=== PATIENT | male | born 1940 | race Caucasian/White ===

== ENCOUNTER 2016-11-02 19:04 | Emergency (ER) | payer OTHER ==
--- NOTE | 2016-11-02 19:52 | DIAGNOSTIC IMAGING REPORT ---
PROCEDURE: XR CHEST 1 VIEW INDICATION: SHORTNESS OF BREATH TECHNIQUE: Single view chest. 1943 hours COMPARISON: None FINDINGS: Lordotic patient. Mild cardiomegaly. No central venous congestion. Minor strandy irregularity right middle lobe region, probably epicardial fat pad. Otherwise clear lungs. No effusions or pneumothorax. Degenerative changes in the right AC joint. IMPRESSION: 1. No acute process. 2. Strandy right middle lobe opacity probably fat pad, less likely atelectasis or infiltrate.
--- NOTE | 2016-11-02 21:24 | ED NURSING NOTES ---
Clinical Report - Nurses [facility] [address] [place] [address] 11/02/2016 19:05 Patient: HERIBERTO SANCHEZ TRIAGE Triage time 1905. Acuity: LEVEL 3. Chief Complaint: (Pt in by EMS after unable to get up by self today. (started to fall, family caught him efore he hit ground) pt fell 2 days ago and c/o back pain, with weakness and increased difficulty breathing). ( FSBS- 143). FRANCIS COMA SCORE: [place] Coma Scale: 15- eyes open spontaneously (4); best verbal response- oriented x 4 (5); best motor response- obeys commands (6). --19:28 Abimbola Priest R.N. 19:05 11/02/16. BP: 119/75. HR: 113. RR: 22. O2 saturation: 95% on room air. Temp: 100.2 F. Pain level now: 5/10. Additional comments: back pain (pt fell ). --19:28 Abimbola Priest R.N. Weight: 95.2 kg stated. Height/Length: 64 inches Per Patient. BMI: 36.1. --19:25 Abimbola Priest R.N. Medications Glimepiride Oral (Tablet 4 mg) 1 tablet, BID. Lovastatin Oral (Tablet 20 mg) 1 tablet, at bedtime. MetFORMIN HCl Oral (Tablet 1000 mg), 2x a day. --19:17 Abimbola Priest R.N. ASA Oral 81mg daily . --19:17 Abimbola Priest R.N. Gabapentin 300mg 2 tabs TID . --19:21 Abimbola Priest R.N. Ropinirole 0.5 2 tabs 1-3 hrs before bedtime . --19:21 Abimbola Priest R.N. Pioglitazone 15mg 1 daily . --19:23 Abimbola Priest R.N. Iron 27mg . --19:24 Abimbola Priest R.N. The following entry was struck and corrected by Abimbola Priest R.N., 19:25 (11/02/16) Reason for correction - other(correction). <<STRICKEN ENTRY-- MetFORMIN HCl Oral. --19:17 Abimbola Priest R.N. --END STRIKE>> The following entry was struck and corrected by Abimbola Priest R.N., 19:22 (11/02/16) Reason for correction - other(correction). <<STRICKEN ENTRY-- Glimepiride Oral. --19:17 Abimbola Priest R.N. --END STRIKE>> The following entry was struck and corrected by Abimbola Priest R.N., 19:20 (11/02/16) Reason for correction - other(correction). <<STRICKEN ENTRY-- Lovastatin Oral. --19:17 Abimbola Priest R.N. --END STRIKE>>. Allergies No Known Drug Allergy. --19:15 Abimbola Priest R.N. History Arrived by EMS. Historian: patient. Accompanied by family. Primary physician ([facility]). This started just prior to arrival. He has had fever, weakness, a cough and difficulty breathing. ( Pt has noisy respirations with frequent cough, has 2 + pedal edema). PAST MEDICAL HX: Diabetes mellitus. Hypertension. SOCIAL HX: Former smoker (quit 10 years ago, was a 2ppd smoker for 40). --19:28 Abimbola Priest R.N. Interventions ID band on patient. To treatment room. --19:28 Abimbola Priest R.N. PHYSICAL ASSESSMENT To room via stretcher. Patient gowned. GENERAL / NEURO / PSYCH: Alert. Oriented X 4. Appears in no acute distress. HEENT: Mucous membranes are pink. RESPIRATORY: The patient can speak in full sentences. Cough. CVS: Capillary refill less than 2 seconds. GI / : Abdomen soft. SKIN: Skin is warm and dry. --19:28 Abimbola Priest R.N. NURSING PROGRESS NOTES 19:05. Oxygen administered. Monitoring of patient in place. Patient gowned. Head of bed elevated. Reassurance given. Patient identifiers checked. Call light placed in reach. Side rails up. Bed placed in lowest position. Patient ready for evaluation- chart flagged. --19:19 Abimbola Priest R.N. 19:21. EKG time: (1920). EKG was ordered, performed by a tech and shown to the ED physician. done by Acosta maki. --19:37 Abimbola Priest R.N. 19:38 11/02/16. Portable chest x-ray ordered, performed and shown to the ED physician. --19:38 Abimbola Priest R.N. 19:50 11/02/2016 Site #1 started via IV in the right antecubital space with an 20g angiocath, with aseptic technique and good blood return; one attempt. Blood drawn: rainbow set and cultures x1. Labeled in the presence of the patient and sent to the lab. Saline lock flushed with 10 mL saline. --20:04 Abimbola Priest R.N. 19:50 IV started, blood to lab. family at bedside. --20:04 Abimbola Priest R.N. 19:50 11/02/16. BP: 143/60. HR: 108. RR: 21. O2 saturation: 97% on room air. Temp: deferred. Pain level now: 5/10. --20:08 Abimbola Priest R.N. 20:30 Pt c/o leg cramps , attempting to make pt more comfortable, moving pillows and adjusting back. --21:12 Abimbola Priest R.N. 21:05. ( pt getting agitated, asking when he can go home). --23:15 Abimbola Priest R.N. 21:15. ( pt stating that he is going to leave. asking for "any form I need so sign so I can get out of here"). --23:16 Abimbola Priest R.N. 21:20. ( daughter asking for information for home health care. given names of Eliot lora and Adina fung for follow up tomorrow). --23:16 Abimobla Priest R.N. 21:15 11/02/2016 Site #1 removed upon discharge. Pressure dressing applied. --23:17 Abimbola Priest R.N. 21:30 11/02/2016 IV Saline Lock Drip IV Discontinued: bag #1 STOPPED upon discharge. Total amount infused: 0 mL. IV patency established. IV site checked: no pain, redness, or swelling. IV flushed thoroughly. --23:18 Abimbola Priest R.N. DISPOSITION / DISCHARGE 21:30. Condition at departure: improved and stable. No learning barriers present. Discharge instructions provided and reviewed with the patient and family. Reviewed medication(s) (lasix). Reviewed referrals (adina travis and eliot lora names given to [facility] home health care). Patient and family verbalized understanding. Written instructions provided in Macedonian. The patient was discharged home and accompanied by family. He left the Emergency Department in a wheelchair and via private vehicle. --23:14 Abimbola Priest R.N. 21:30 11/02/16. BP: 152/68. HR: 110. RR: 22. O2 saturation: 97% on room air. Temp: deferred. Pain level now: 12/09. --23:14 Abimbola Priest R.N. Locked/Released at 11/02/2016 23:19 by Abimbola Priest R.N.
--- NOTE | 2016-11-02 21:24 | ED NURSING NOTES ---
Clinical Report - Nurses [facility] [address] [place] [address] 11/02/2016 19:05 Patient: HERIBERTO SANCHEZ TRIAGE Triage time 1905. Acuity: LEVEL 3. Chief Complaint: (Pt in by EMS after unable to get up by self today. (started to fall, family caught him efore he hit ground) pt fell 2 days ago and c/o back pain, with weakness and increased difficulty breathing). ( FSBS- 143). FRANCIS COMA SCORE: [place] Coma Scale: 15- eyes open spontaneously (4); best verbal response- oriented x 4 (5); best motor response- obeys commands (6). --19:28 Abimbola Priest R.N. 19:05 11/02/16. BP: 119/75. HR: 113. RR: 22. O2 saturation: 95% on room air. Temp: 100.2 F. Pain level now: 5/10. Additional comments: back pain (pt fell ). --19:28 Abimbola Priest R.N. Weight: 95.2 kg stated. Height/Length: 64 inches Per Patient. BMI: 36.1. --19:25 Abimbola Priest R.N. Medications Glimepiride Oral (Tablet 4 mg) 1 tablet, BID. Lovastatin Oral (Tablet 20 mg) 1 tablet, at bedtime. MetFORMIN HCl Oral (Tablet 1000 mg), 2x a day. --19:17 Abimbola Priest R.N. ASA Oral 81mg daily . --19:17 Abimbola Priest R.N. Gabapentin 300mg 2 tabs TID . --19:21 Abimbola Priest R.N. Ropinirole 0.5 2 tabs 1-3 hrs before bedtime . --19:21 Abimbola Priest R.N. Pioglitazone 15mg 1 daily . --19:23 Abimbola Priest R.N. Iron 27mg . --19:24 Abimbola Priest R.N. The following entry was struck and corrected by Abimbola Priest R.N., 19:25 (11/02/16) Reason for correction - other(correction). <<STRICKEN ENTRY-- MetFORMIN HCl Oral. --19:17 Abimbola Priest R.N. --END STRIKE>> The following entry was struck and corrected by Abimbola rPiest R.N., 19:22 (11/02/16) Reason for correction - other(correction). <<STRICKEN ENTRY-- Glimepiride Oral. --19:17 Abimbola Priest R.N. --END STRIKE>> The following entry was struck and corrected by Abimbola Priest R.N., 19:20 (11/02/16) Reason for correction - other(correction). <<STRICKEN ENTRY-- Lovastatin Oral. --19:17 Abimbola Priest R.N. --END STRIKE>>. Allergies No Known Drug Allergy. --19:15 Abimbola Priest R.N. History Arrived by EMS. Historian: patient. Accompanied by family. Primary physician ([facility]). This started just prior to arrival. He has had fever, weakness, a cough and difficulty breathing. ( Pt has noisy respirations with frequent cough, has 2 + pedal edema). PAST MEDICAL HX: Diabetes mellitus. Hypertension. SOCIAL HX: Former smoker (quit 10 years ago, was a 2ppd smoker for 40). --19:28 Abimbola Priest R.N. Interventions ID band on patient. To treatment room. --19:28 Abimbola Priest R.N. PHYSICAL ASSESSMENT To room via stretcher. Patient gowned. GENERAL / NEURO / PSYCH: Alert. Oriented X 4. Appears in no acute distress. HEENT: Mucous membranes are pink. RESPIRATORY: The patient can speak in full sentences. Cough. CVS: Capillary refill less than 2 seconds. GI / : Abdomen soft. SKIN: Skin is warm and dry. --19:28 Abimbola Priest R.N. NURSING PROGRESS NOTES 19:05. Oxygen administered. Monitoring of patient in place. Patient gowned. Head of bed elevated. Reassurance given. Patient identifiers checked. Call light placed in reach. Side rails up. Bed placed in lowest position. Patient ready for evaluation- chart flagged. --19:19 Abimbola Priest R.N. 19:21. EKG time: (1920). EKG was ordered, performed by a tech and shown to the ED physician. done by Acosta maki. --19:37 Abimbola Priest R.N. 19:38 11/02/16. Portable chest x-ray ordered, performed and shown to the ED physician. --19:38 Abimbola Priest R.N. 19:50 11/02/2016 Site #1 started via IV in the right antecubital space with an 20g angiocath, with aseptic technique and good blood return; one attempt. Blood drawn: rainbow set and cultures x1. Labeled in the presence of the patient and sent to the lab. Saline lock flushed with 10 mL saline. --20:04 Abimbola Priest R.N. 19:50 IV started, blood to lab. family at bedside. --20:04 Abimbola Priest R.N. 19:50 11/02/16. BP: 143/60. HR: 108. RR: 21. O2 saturation: 97% on room air. Temp: deferred. Pain level now: 5/10. --20:08 Abimbola Priest R.N. 20:30 Pt c/o leg cramps , attempting to make pt more comfortable, moving pillows and adjusting back. --21:12 Abimbola Priest R.N. 21:05. ( pt getting agitated, asking when he can go home). --23:15 Abimbola Priest R.N. 21:15. ( pt stating that he is going to leave. asking for "any form I need so sign so I can get out of here"). --23:16 Abimbola Priest R.N. 21:20. ( daughter asking for information for home health care. given names of Eliot lora and Adina fung for follow up tomorrow). --23:16 Abimbola Priest R.N. 21:15 11/02/2016 Site #1 removed upon discharge. Pressure dressing applied. --23:17 Abimbola Priest R.N. 21:30 11/02/2016 IV Saline Lock Drip IV Discontinued: bag #1 STOPPED upon discharge. Total amount infused: 0 mL. IV patency established. IV site checked: no pain, redness, or swelling. IV flushed thoroughly. --23:18 Abimbola Priest R.N. DISPOSITION / DISCHARGE 21:30. Condition at departure: improved and stable. No learning barriers present. Discharge instructions provided and reviewed with the patient and family. Reviewed medication(s) (lasix). Reviewed referrals (adina travis and eliot lora names given to [facility] home health care). Patient and family verbalized understanding. Written instructions provided in [place]agu[place]. The patient was discharged home and accompanied by family. He left the Emergency Department in a wheelchair and via private vehicle. --23:14 Abimbola Priest R.N. 21:30 11/02/16. BP: 152/68. HR: 110. RR: 22. O2 saturation: 97% on room air. Temp: deferred. Pain level now: 12/09. --23:14 Abimbola Priest R.N. Locked/Released at 11/02/2016 23:19 by Abimbola Priest R.N.
--- NOTE | 2016-11-02 21:24 | ED ORDER SUMMARY ---
..... Patient: HERIBERTO SANCHEZ OrderSheet [facility] VisitID: [id number] [place] [address] 76y, M Registration Date/Time: 11/02/2016 ORDER SHEET Weight: 95.2 kg (stated) Allergies: No Known Drug Allergy GENERAL ORDERS: Chest 1V Urgent (:11/02/2016 Ingrid ROCHA) (19:43 EInderbitzen R.N.) Drapery Supervisor (Continuous) (11/02/2016 Ingrid ROCHA) (Ack 19:45 Brendaekimana) (20:10 RCollier R.N.) Cardiac Panel Stat (11/02/2016 Ingrid ROCHA) (Ack 20:11 CHategekimana) (20:13 DDean R.N.) BNP Urgent (11/02/2016 Ingrid ROCHA) (Ack 19:45 Brendaekimana) (20:10 RCollier R.N.) PT with INR Urgent (11/02/2016 Ingrid ROCHA) (Ack 19:45 Brendaekimana) (20:10 RCollier R.N.) Oxygen (2 L/min) (NC) (11/02/2016 Ingrid ROCHA) (Ack 19:45 Brendaekimana) (20:10 RCollier R.N.) Pulse oximeter (11/02/2016 Ingrid ROCHA) (20:10 RCollier R.N.) EKG - ER Stat (11/02/2016 Ingrid ROCHA) (19:43 EInderbitzen R.N.) MEDICATION ORDERS: IV FLUIDS: IV Saline Lock (11/02/2016 Ingrid ROCHA) (Ack 20:10 RCollier R.N.) (20:14 DDean R.N.) ORDER SHEET NOTES: [Electronically signed by Abimbola Priest R.N. (23:19 11/02/2016)] [Electronically signed by Lizet Schuler MD (01:02 11/13/2016)] [Electronically locked/signed by Abimbola Priest R.N. (23:19 11/02/2016)]
--- NOTE | 2016-11-02 21:24 | ED ORDER SUMMARY ---
..... Patient: HERIBERTO SANCHEZ OrderSheet [facility] VisitID: [id number] [place] [address] 76y, M Registration Date/Time: 11/02/2016 ORDER SHEET Weight: 95.2 kg (stated) Allergies: No Known Drug Allergy GENERAL ORDERS: Chest 1V Urgent (:11/02/2016 Ingrid ROCHA) (19:43 EInderbitzen R.N.) Principal Electrical Engineer (Continuous) (11/02/2016 Ingrid ROCHA) (Ack 19:45 Brendaekimana) (20:10 RCollier R.N.) Cardiac Panel Stat (11/02/2016 Ingrid ROCHA) (Ack 20:11 CHategekimana) (20:13 DDean R.N.) BNP Urgent (11/02/2016 Ingrid ROCHA) (Ack 19:45 Brendaekimana) (20:10 RCollier R.N.) PT with INR Urgent (11/02/2016 Ingrid ROCHA) (Ack 19:45 Brendaekimana) (20:10 RCollier R.N.) Oxygen (2 L/min) (NC) (11/02/2016 Ingrid ROCHA) (Ack 19:45 Brendaekimana) (20:10 RCollier R.N.) Pulse oximeter (11/02/2016 Ingrid ROCHA) (20:10 RCollier R.N.) EKG - ER Stat (11/02/2016 Ingrid ROCHA) (19:43 EInderbitzen R.N.) MEDICATION ORDERS: IV FLUIDS: IV Saline Lock (11/02/2016 Ingrid ROCHA) (Ack 20:10 RCollier R.N.) (20:14 DDean R.N.) ORDER SHEET NOTES: [Electronically signed by Abimbola Priest R.N. (23:19 11/02/2016)] [Electronically signed by Lizet Schuler MD (01:02 11/13/2016)] [Electronically locked/signed by Abimbola Priest R.N. (23:19 11/02/2016)]
--- NOTE | 2016-11-02 21:24 | ED CLINICAL REPORT ---
Clinical Report - Physicians/Mid Levels [facility] [address] [place] [address] 11/02/2016 19:05 Patient: HERIBERTO SANCHEZ Time Seen: 19:11. Arrived- By ambulance. Historian- patient and EMS personnel. HISTORY OF PRESENT ILLNESS Chief Complaint: cough, generalized weakness. This started about 3 days ago and is still present. Fever not measured. No muscle aches, loss of appetite, chest pain, dyspnea or decreased oral intake. No diarrhea, altered mental status, skin breakdown noted or rash or joint pain. He has had mild fatigue and a cough. No decreased urine output. Additional history - No known contact with a sick individual. Has not recently been ill. He is not immunocompromised. No recent hospitalization. No new medication recently administered. No history of cancer. No history of HIV illness. No recent travel. No known exposure to an animal. No drug use. No alcohol recently. No Rivera catheter. Similar symptoms previously: Occasionally. Recent medical care: Not recently seen/assessed. REVIEW OF SYSTEMS No anorexia, weight loss, palpitations, calf pain or sputum production. No nausea, constipation, black stools, difficulty with urination or flank pain. No vomiting, headache, sinus pain, sore throat or easy bruising. No enlarged lymph nodes, neck pain or back pain. All systems otherwise negative, except as recorded above. PAST HISTORY Problems: Diabetes Mellitus. Hypertension. Additional Surgeries: no known surgeries. Medications: Iron 27mg . Pioglitazone 15mg 1 daily . Ropinirole 0.5 2 tabs 1-3 hrs before bedtime . Gabapentin 300mg 2 tabs TID . ASA Oral 81mg daily . Glimepiride Oral (Tablet 4 mg) 1 tablet, BID. Lovastatin Oral (Tablet 20 mg) 1 tablet, at bedtime. MetFORMIN HCl Oral (Tablet 1000 mg), 2x a day. Allergies: No Known Drug Allergy. SOCIAL HISTORY Former smoker. No alcohol use or drug use. ADDITIONAL NOTES The nursing notes have been reviewed. PHYSICAL EXAM Vital Signs: 11/02/2016 19:05 BP: 119/75. HR: 113. RR: 22. O2 saturation: 95%. Temp: 100.2 F. Pain level now: 510. Have been reviewed. Appearance: Alert. No acute distress. Eyes: Pupils equal, round and reactive to light. Eyes normal inspection. ENT: Nose normal. Neck: Normal inspection. Neck supple. CVS: Normal heart rate and rhythm. 1/6 systolic murmur. Pulses normal. Respiratory: No respiratory distress. Breath sounds normal. Abdomen: Soft and nontender. Back: Normal inspection. Skin: Skin warm and dry. Normal skin color. No rash. Normal skin turgor. Extremities: Extremities exhibit normal ROM. Extremities nontender. Neuro: Oriented X 3. No motor deficit. No sensory deficit. LABS, X-RAYS, AND EKG EKG: EKG time: (1920). No acute process. Rate: 109. Regular tachycardia. Sinus tachycardia. Occasional narrow-complex and atrial ectopic beats. Premature atrial contractions. Normal P waves. Normal RO. Normal QRS complex. Normal axis. Normal ST and T waves, QT and QTc. Prior EKG unavailable. The study has been interpreted contemporaneously by me. The study has been independently viewed by me. The EKG appears to be a good tracing. I agree with and confirm the computer reading of the EKG. Rhythm Strip #1: Time: (1917). Rate= 104. Sinus tachycardia. Regular rhythm. Narrow QRS complexes. No ectopy. Conduction normal. Normal ST segments and T waves. The study was interpreted by me. Chest X-ray: No acute disease. Normal lung markings present. Normal heart size. Mediastinum normal. Great vessels normal. Soft tissues normal. No infiltrate. No fracture. No bony lesion present. Views: AP (portable). Technique: good. The X-rays were independently viewed by me, interpreted by the radiologist and contemporaneously by me and discussed with the radiologist. Prior films were not available for comparison. Laboratory Tests: CBC w Diff: (JOSÉ MIGUEL: 11/02/2016 19:50) ( MsgRcvd 11/02/2016 20:17) Final results Test Result Flag Units (Reference) WHITE BLOOD COUNT 10.6 K/uL (4.5-11.5) RED BLOOD COUNT 3.32 L M/uL (4.50-5.90) HEMOGLOBIN 10.3 L gm/dL (13.5-17.5) HEMATOCRIT 30.2 L % (41.0-53.0) MEAN CELL VOLUME 91 fL (80-100) MEAN CORPUSCULAR HGB 31 pg (26-34) MEAN CORPUSCULAR HGB CONC 34 g/dL (31-37) RED CELL DISTRIBUTION WIDTH 14.5 % (11.6-14.8) PLATELET COUNT 159 K/uL (150-400) NEUTROPHIL % 86.1 H % (50-75) LYMPH % 6.4 L % (25-40) MONO % 5.8 % (3-14) EOSINOPHIL % 1.4 % (0-4) BASOPHIL % 0.3 % (0-2) PT with INR: (JOSÉ MIGUEL: 11/02/2016 19:50) ( [facility] 11/02/2016 20:22) Final results Test Result Flag Units (Reference) INR 1.1 (0.8-1.2) Low Intensity Therapy: INR 1.5-2.0 PT range 18.5-23.1Mod.Intensity Therapy: INR 2.0-3.0 PT range 23.1-31.5High Intensity Therapy: INR 2.5-3.5 PT range 27.4-35.5High Intensity Therapy 2: INR 3.0-4.0 PT range 31.5-39.3 BNP: (JOSÉ MIGUEL: 11/02/2016 19:50) ( [facility] 11/02/2016 20:43) Final results Test Result Flag Units (Reference) B-TYPE NATRIURETIC PEPTIDE 209 H pg/ml (5-100) CHEM 13 PANEL: (JOÉS MIGUEL: 11/02/2016 19:50) ( [facility] 11/02/2016 20:32) Final results Test Result Flag Units (Reference) GLUCOSE 177 H mg/dL (70-110) BUN 16 mg/dL (7-18) CREATININE 1.3 mg/dL (0.6-1.3) Estimated GFR 57.35 mL/min Estimated GFR- >60 mL/min Note: Persistent reduction over 3 months in eGFR<60 mL/min/1.73 m2 defines CKD. Patients with eGFR values>=60 mL/min/1.73 m2 may also have CKD if evidence ofpersistent proteinuria. Additional information may be foundat www.kidney.org. SODIUM 140 mmol/L (136-145) POTASSIUM 3.9 mmol/L (3.5-5.1) CHLORIDE 106 mmol/L (98-107) CARBON DIOXIDE 26 mmol/L (21-32) CALCIUM 8.8 mg/dL (8.5-10.1) TOTAL PROTEIN 6.9 g/dL (6.4-8.2) ALBUMIN 2.9 L g/dL (3.3-5.0) BILIRUBIN, TOTAL 1.2 H mg/dL (0.0-1.0) ALKALINE PHOSPHATASE 61 U/L (46-116) AST (SGOT) 18 U/L (15-37) ALT (SGPT) 16 U/L (12-78) CPK 36 U/L (24-260) MAGNESIUM 1.4 L mg/dL (1.8-2.4) TROPONIN I <0.05 L ng/mL (0.00-1.5) TROPONIN REFERENCE RANGE:<0.1 NEGATIVE0.1-1.5 INDETERMINANT>1.5 POSITIVE . Pulse Oximetry: 11/02/2016 19:05 O2 saturation: 95%. (FIO2 - room air). Interpretation: normal. PROGRESS AND PROCEDURES Course of Care: Pt was worked up for his sx, considering his history of DM, with labs, EKG, and CXR. Work-up was unremarkable. Patient and family counseled in person regarding the patient's stable condition, test results, diagnosis and need for follow-up. Concerns were addressed. Old medical records reviewed. Disposition: Discharged. Condition: stable. CLINICAL IMPRESSION Acute cough Chronic mild congestive heart failure INSTRUCTIONS Warnings: GENERAL WARNINGS: Return or contact your physician immediately if your condition worsens or changes unexpectedly, if not improving as expected, or if other problems arise. Your Current Medications: CONTINUE TAKING THE FOLLOWING MEDICATIONS: ASA Oral : 81mg daily. Gabapentin 300mg 2 tabs TID *. Glimepiride Oral : Tablet 4 mg, 1 tablet BID. Iron 27mg *. Lovastatin Oral : Tablet 20 mg, 1 tablet at bedtime. MetFORMIN HCl Oral : Tablet 1000 mg, 2x a day. Pioglitazone 15mg 1 daily *. Ropinirole* : 0.5 2 tabs 1-3 hrs before bedtime. Prescription Medications: Lasix 20 mg: take 1 orally every 24 hours. Dispense ten (10). No refills. Substitution is permissible. Follow-up: Follow up with your doctor. Call for the next available appointment. Reason for referral: Follow up to discuss congestive heart failure and fluid retention. Understanding of the discharge instructions verbalized by patient and family. (Electronically signed by Lizet Schuler MD 11/13/2016 1:02)
--- NOTE | 2016-11-13 01:02 | ED MAR SUMMARY ---
..... Medication Administration Record [facility] [address] [place], [place] [id number] Patient: HERIBERTO SANCHEZ Visit ID: [id number] 76y, M Weight: 95.2 kg Height/Length: 64 in BMI: 36.1 ALLERGIES: No Known Drug Allergy
--- NOTE | 2016-11-13 01:02 | ED MED RECONCILIATION SUMMARY ---
Patient: HERIBERTO SANCHEZ Medication Reconciliation Report [facility] VisitID: [id number] [address] [place] [address] 76y, M Registration Date/Time: 11/02/2016 Weight: 95.2 kg Height/Length: 64 in. BMI: 36.1 ALLERGIES: No Known Drug Allergy The patient's Home Medications are listed below: CONTINUE TAKING THE FOLLOWING MEDICATIONS: ASA Oral 81mg daily Gabapentin 300mg 2 tabs TID Glimepiride Oral (4 mg) 1 tablet, BID Iron 27mg Lovastatin Oral (20 mg) 1 tablet, at bedtime MetFORMIN HCl Oral (1000 mg), 2x a day Pioglitazone 15mg 1 daily Ropinirole 0.5 2 tabs 1-3 hrs before bedtime The source(s) of the original Home Medication information: Not obtained. The following Medications were given to the patient in the Emergency Department: None. The following Medications were prescribed to the patient: Lasix 20 mg: take 1 orally every 24 hours. Dispense ten (10). No refills. Substitution is permissible. -- Lizet Schuler MD
--- NOTE | 2016-11-13 01:02 | ED MED RECONCILIATION SUMMARY ---
Patient: HERIBERTO SANCHEZ Medication Reconciliation Report [facility] VisitID: [id number] [address] [place] [address] 76y, M Registration Date/Time: 11/02/2016 Weight: 95.2 kg Height/Length: 64 in. BMI: 36.1 ALLERGIES: No Known Drug Allergy The patient's Home Medications are listed below: CONTINUE TAKING THE FOLLOWING MEDICATIONS: ASA Oral 81mg daily Gabapentin 300mg 2 tabs TID Glimepiride Oral (4 mg) 1 tablet, BID Iron 27mg Lovastatin Oral (20 mg) 1 tablet, at bedtime MetFORMIN HCl Oral (1000 mg), 2x a day Pioglitazone 15mg 1 daily Ropinirole 0.5 2 tabs 1-3 hrs before bedtime The source(s) of the original Home Medication information: Not obtained. The following Medications were given to the patient in the Emergency Department: None. The following Medications were prescribed to the patient: Lasix 20 mg: take 1 orally every 24 hours. Dispense ten (10). No refills. Substitution is permissible. -- Lizet Schuler MD
--- NOTE | 2016-11-13 01:02 | ED MAR SUMMARY ---
..... Medication Administration Record [facility] [address] [place], [place] [id number] Patient: HERIBERTO SANCHEZ Visit ID: [id number] 76y, M Weight: 95.2 kg Height/Length: 64 in BMI: 36.1 ALLERGIES: No Known Drug Allergy
--- NOTE | 2016-11-13 01:02 | ED DISCHARGE INSTRUCTIONS ---
Patient: HERIBERTO SANCHEZ General Instructions [facility] VisitID: [id number] [place] [address] 76y, M Registration Date/Time: 11/02/2016 Acute cough Chronic mild congestive heart failure INSTRUCTIONS Warnings: GENERAL WARNINGS: Return or contact your physician immediately if your condition worsens or changes unexpectedly, if not improving as expected, or if other problems arise. Your Current Medications: CONTINUE TAKING THE FOLLOWING MEDICATIONS: ASA Oral : 81mg daily. Gabapentin 300mg 2 tabs TID *. Glimepiride Oral : Tablet 4 mg, 1 tablet BID. Iron 27mg *. Lovastatin Oral : Tablet 20 mg, 1 tablet at bedtime. MetFORMIN HCl Oral : Tablet 1000 mg, 2x a day. Pioglitazone 15mg 1 daily *. Ropinirole* : 0.5 2 tabs 1-3 hrs before bedtime. Prescription Medications: Lasix 20 mg: take 1 orally every 24 hours. Dispense ten (10). No refills. Substitution is permissible. Follow-up: Follow up with your doctor. Call for the next available appointment. Reason for referral: Follow up to discuss congestive heart failure and fluid retention. Understanding of the discharge instructions verbalized by patient and family. ADDITIONAL INFORMATION Heart Failure (Left Or Right Sided) The heart is a large muscle that pumps blood throughout the body. Blood carries oxygen to all the organs, muscles, and skin of your body. After the body takes the oxygen out of the blood, the blood returns to the heart. The right side of the heart collects that blood and pumps it to the lungs to receive fresh oxygen. This oxygen-rich blood from the lungs then returns to the left side of the heart where it is pumped back out to the rest of the body, starting the process all over. Heart Failure (HF) occurs when the heart muscle is weakened. This affects the pumping action of the heart. When the right side of the heart is weakened, it cant handle the blood it is receiving from the rest of the body. This blood returns to the heart through veins. When too much pressure builds up in the veins fluid leaks out into the tissues. [place] then causes that fluid to spread to those parts of the body that are the lowest. Therefore, one of the first symptoms of HF include swelling in the feet and ankles. If the condition worsens, the swelling can even go up past the knees. When the left side of the heart is weakened, it cant handle the blood it is receiving from the lungs. Pressure then builds up in the veins of the lungs, causing fluid to leakinto the lung tissues. This may be referred to as congestive heart failure.This causes you to feel short of breath, weak, or dizzy. These symptoms are often worse with exertion, such as climbing stairs or walking up hills. Lying flat is uncomfortable and can make your breathing worse. This may make sleeping difficult and force you to useextra pillows to sleep well. This condition may not only affect the right side of the heart or only the left side. While it may have started on one side, it often affects both sides. Causes of heart failure Coronary artery disease Prior heart attack (also known as acute myocardial infarction, or AMI) High blood pressure Damaged heart valve Diabetes Obesity Cigarette smoking Alcohol abuse Treatment Heart failure is a chronic condition. There is no cure. The purpose of medical treatment is to improve the pumping action of the heart, and remove excess water from the body. A number of medications can help achieve this goal,improvesymptoms and prevent the heart from becoming weaker. Another major goal is to better treat the caues of heart failure, such as diabetes, high blood pressure, and your lifestyle. Home care Check your weight every day. A sudden increase in weight gain could mean worsening heart failure. Use the same scale every day Weigh yourself at the same time every day Make sure the scale is on the floor, not on a rug Keep a record of your weight every day, so your doctor can see it. If you are not given a log sheet for this, keep a separate journal for this purpose. Reduce your salt (sodium) intake. Avoid high-salt foods (olives, pickles, smoked meats, salted potato chips, etc.). Do not add salt to your food at the table and use only small amounts of salt when cooking. Follow your doctors recommendations about how much fluid intake is safe. Stop smoking. Reduce alcohol use. Lose weight if you are overweight. The excess weight adds a lot of stress on the workload of the heart. Stay active. Talk to your doctor about an exercise program that is safe for your heart. Keep your feet elevated to reduce swelling. Ask your doctor about support hose as a preventive treatment for daytime leg swelling. Besides taking your medicine as instructed, an important part of treatment includes lifestyle changes such as diet, physical activity, stopping smoking, and weight control. Improve your diet. Often in the hospital, people are given a "heart healthy diet." This includes more fresh foods, lower fat, less processed foots, and lower salt. Follow-up care Follow up with your doctor as directed by our staff. Make sure to keep any appointments that were made for you as this can help better control heart failure. If an X-ray was done, you will be notified of any new findings that may affect your care. Call 911 Call 911 if you: Become severely short of breath Feel lightheaded, or feel like you might pass out or faint Have chest pain or discomfort that is different than usual, the medicines your doctor told you to use for this do not help, or the pain lasts longer than 10 to 15 minutes Suddendly develop a rapid heart rate When to seek medical care Get prompt medical attention if you have any of the following signs of worsening heart failure: Sudden weight gain (3or more pounds in one day or5or more pounds in one week) Trouble breathing not related to being active New or increased swelling of your legs or ankles Swelling or pain in your abdomen Breathing trouble at night (waking up short of breath, needing more pillows to breathe) Frequent coughing that doesnt go away Feeling much more tired than usual Viral Respiratory Illness [Adult] You have an Upper Respiratory Illness (URI) caused by a virus. This illness is contagious during the first few days. It is spread through the air by coughing and sneezing or by direct contact (touching the sick person and then touching your own eyes, nose or mouth). Most viral illnesses go away within 7-10 days with rest and simple home remedies. Sometimes, the illness may last for several weeks. Antibiotics will not kill a virus and are generally not prescribed for this condition. Home Care: 1) If symptoms are severe, rest at home for the first 2-3 days. When you resume activity, don't let yourself get too tired. 2) Avoid being exposed to cigarette smoke (yours or others). 3) Tylenol (acetaminophen) or ibuprofen (Advil, Motrin) will help fever, muscle aching and headache. (Persons under 18 with fever should not take aspirin since this may cause liver damage.) 4) Your appetite may be poor, so a light diet is fine. Avoid dehydration by drinking 6-8 glasses of fluids per day (water, soft drinks, juices, tea, soup). Extra fluids will help loosen secretions in the nose and lungs. 5) [id number] cold medicines will not shorten the length of time youre sick, but they may be helpful for the following symptoms: cough (Robitussin DM); sore throat (Chloraseptic lozenges or spray); nasal and sinus congestion (Actifed, Sudafed, Chlortrimeton). Follow Up with your doctor or as advised if you dont improve over the next week. Get Prompt Medical Attention if any of the following occur: -- Cough with lots of colored sputum (mucus) or blood in your sputum -- Chest pain, shortness of breath, wheezing or have trouble breathing -- Severe headache; face, neck or ear pain -- Fever over 100.4 F (38.0 C) for more than three days -- You cant swallow due to throat pain You have been given the following additional information: Heart Failure, General Uri, Viral, No Abx (Adult) (Electronically signed by Lizet Schuler MD 11/13/2016 1:02)
== END 2016-11-02 21:30 | disposition home or self-care (01) ==
LOC: ED SRH 19:04
DX: I50.9 Heart failure, unspecified (principal); R05 Cough; I10 Essential (primary) hypertension; E11.9 Type 2 diabetes mellitus without complications; Z79.84 Long term (current) use of oral hypoglycemic drugs; Z79.82 Long term (current) use of aspirin; Z79.899 Other long term (current) drug therapy; Z87.891 Personal history of nicotine dependence
CPT/HCPCS: 90100; 90616; 91320; 92610; 92720; 94060; 95059